=== PATIENT | female | born 1965 | race Caucasian/White ===

== ENCOUNTER 2018-12-08 18:57 | Emergency (ER) | payer OTHER, SELFPAY ==
[2018-12-08 19:24] VITALS: BP 151/93; PULSE 66; RESP 15; TEMP 36.8; O2SAT 96; BMI 38.7
== END 2018-12-08 21:20 | disposition left against medical advice (07) ==
PROVIDERS: Emergency Provider Emergency Medicine; PCP Registered Nurse Diabetes Educator
DX: Z53.21 Procedure and treatment not carried out due to patient leaving prior to being seen by health care provider (principal)
CPT/HCPCS: 99282

== ENCOUNTER 2019-10-24 12:49 | Emergency (ER) | payer OTHER, SELFPAY ==
[2019-10-24] VITALS (11 sets, daily range): BP systolic 133–171; BP diastolic 62–89; PULSE 62–77; RESP 15–25; TEMP 36.6–36.7; O2SAT 96–100
--- NOTE | 2019-10-24 12:51 | DI.RAD.S_ITS ---
PROCEDURE: XR KNEE RT 3V INDICATIONS: possible dislocation TECHNIQUE: 2 views of the knee were acquired. COMPARISON: None. FINDINGS: Bones: There is lateral dislocation of tibia at the femorotibial joint. The patella is also laterally dislocated. Small fracture fragments are likely present. Soft tissues: No joint effusion. No suspicious soft tissue calcifications. IMPRESSION: Lateral dislocation of the right knee. Dictated by: Tawnya Martinez M.D. on 10/24/2019 at 13:25 Approved by: Tawnya Martinez M.D. on 10/24/2019 at 13:35
--- NOTE | 2019-10-24 12:55 | ED_ITS ---
HPI - General Adult General Chief complaint: Extremity Injury, Lower Stated complaint: R knee deformity after fall Time Seen by Provider: 10/24/19 12:51 Source: patient and EMS Mode of arrival: EMS Limitations: no limitations History of Present Illness HPI narrative: 54-year-old female here for evaluation of a right knee injury. Patient states that she was outside with her dogs when she tripped over 1 of her dogs in slipped and fell. Has an obvious deformity to her right knee. Arrived by EMS in a Aircast. She was not given any pain medication per her request prior to arrival. Related Data Previous Rx's Medication Instructions Recorded hydrocodone-acetaminophen [[place]] 1 tab PO Q4-6H PRN #14 tab 10/24/19 Allergies Allergy/AdvReac Type Severity Reaction Status Date / Time No Known Drug Allergies Allergy Verified 12/08/18 19:28 Review of Systems Constitutional Constitutional: Denies fatigue and Denies headache(s) ENT Ears, Nose, Mouth, and Throat: Denies headache(s) Cardiovascular Cardiovascular: Denies chest pain and Denies dyspnea Respiratory Respiratory: Denies dyspnea Gastrointestinal Gastrointestinal: Denies abdominal pain Musculoskeletal Musculoskeletal: Denies numbness and Denies tingling Comments: Right knee pain and deformity Integumentary/Breasts Skin/Breast: Denies lesions and Denies rash Neurologic Neurologic: Denies headache(s), Denies numbness, Denies tingling and Denies paresthesias Comments: No sensation changes right lower extremity Endocrine Endocrine: Denies fatigue Hematologic/Lymphatic Hematologic/Lymphatic: Denies easy bleeding and Denies easy bruising Patient History Medical History Crohn's disease (Acute) Hypothyroid (Acute) Social History Smoking Status: Never smoker Smoking Status: Never smoker alcohol intake frequency: 0-2 drinks per day Substance Use Type: does not use Exam Initial Vital Signs Initial Vital Signs: Vital Signs Temperature 97.8 F 10/24/19 13:00 Pulse Rate 62 10/24/19 13:00 Respiratory Rate 21 10/24/19 13:00 Blood Pressure 144/69 H 10/24/19 13:00 Pulse Oximetry 100 10/24/19 13:00 Const General: cooperative and No comfortable (Uncomfortable) Limitations: mental status not altered HENOK Head: normal to inspection and normocephalic Resp Effort & Inspection: normal respiratory effort Cardio Pulses: dorsalis pedis present on the right Skin Lesions: no lesions Rashes: no rashes Neuro Other: Sensation intact right foot. Patient able to the move her toes and dorsiflex her ankle. Extrem Other: Obvious deformity to right knee Psych Appearance: grossly normal and well kempt Procedures Orthopedic Joint Reduction Joint #1: Time Out Performed: Yes Side: right Joint Reduction Location: knee/patella Analgesia: procedural sedation Post-reduction neuro exam: intact and no change Post-reduction vascular: intact and no change Post Reduction X-Ray Obtained: Yes Post Reduction X-Ray Results: reduced Splint Applied: Yes Patient Tolerated Procedure: Well Orthopedic Splinting/Casting Injury #1: Side: right Lower Extremity Injury Location: knee Lower Extremity Immobilizer: posterior splint Post splinting neuro exam: intact Post splinting vascular exam: intact Placed by: Provider Procedural Sedation Consent signed: No Time out performed: Yes Indication: fracture/dislocation reduction ASA Class: II Mallampati Airway Classification: Class I Preparation: ekg monitor tech applied, pulse oximeter, capnometry used and supplemental O2 applied IV Propofol dose (mg): 150 ED Sedation Level: Moderate (Concious) Complications: hypoventilation Interventions: Airway repositioned and Assist by BVM Course Orders Ordered: ED Orders 10/24/19 12:51 XR knee RT 1to2V Stat 10/24/19 13:15 Basic Metabolic Panel Stat Complete Blood Count AUTO DIFF Stat 10/24/19 13:34 XR knee RT 1to2V Stat 10/24/19 13:44 CT angio LE RT Stat Discontinued Medications Hydromorphone HCl (Dilaudid) 1 mg IV NOW ONE Stop: 10/24/19 12:55 Last Admin: 10/24/19 13:02 Dose: 1 mg Documented by: MEISENB Sodium Chloride (Normal Saline 0.9%) 1,000 mls @ 150 mls/hr IV CONT VIOLA Last Infusion: 10/24/19 17:13 Dose: 0 mls/hr Documented by: Admin: 10/24/19 13:02 Dose: 150 mls/hr Documented by: MEISENB Propofol (Diprivan) 100 mg IV NOW ONE Stop: 10/24/19 13:10 Last Admin: 10/24/19 13:37 Dose: 100 mg Documented by: MEISENB Vital Signs Vital signs: Vital Signs - 8 hr 10/24/19 13:00 10/24/19 13:14 10/24/19 13:21 Temperature 97.8 F Pulse Rate 62 65 Pulse Rate [Right Dorsalis Pedis] 63 Respiratory Rate 21 18 Blood Pressure 144/69 H Blood Pressure [Left Arm] 135/62 Blood Pressure [Right Ankle] Blood Pressure [Right Arm] Pulse Oximetry 100 100 10/24/19 13:23 10/24/19 13:30 10/24/19 13:42 Temperature Pulse Rate 66 66 64 Pulse Rate [Right Dorsalis Pedis] Respiratory Rate 18 25 H 18 Blood Pressure Blood Pressure [Left Arm] 153/71 H 151/66 H 171/79 H Blood Pressure [Right Ankle] Blood Pressure [Right Arm] Pulse Oximetry 100 100 100 10/24/19 13:44 10/24/19 14:00 10/24/19 15:06 Temperature Pulse Rate 62 75 77 Pulse Rate [Right Dorsalis Pedis] Respiratory Rate 19 16 17 Blood Pressure Blood Pressure [Left Arm] 152/82 H 141/89 H 151/76 H Blood Pressure [Right Ankle] Blood Pressure [Right Arm] Pulse Oximetry 100 99 96 10/24/19 17:07 Temperature Pulse Rate Pulse Rate [Right Dorsalis Pedis] Respiratory Rate Blood Pressure Blood Pressure [Left Arm] 133/63 Blood Pressure [Right Ankle] 159/74 H Blood Pressure [Right Arm] 133/63 Pulse Oximetry Medical Decision Making Lab Data Lab results reviewed: Yes I reviewed the patient's lab results. Result diagrams: 10/24/19 13:15 10/24/19 13:15 Labs: Lab Results 10/24/19 10/24/19 Range/Units 13:15 13:15 WBC 9.7 (4.5-11.0) X10^3/uL RBC 4.63 (4.0-5.2) X10^6/uL Hgb 14.4 (12.0-16.0) g/dL Hct 42.3 (36-46) % MCV 91.4 (80-100) fL MCH 31.2 (26-34) PG MCHC 34.1 (30-36) % RDW 12.8 (11.6-14.8) % Plt Count 308 (150-400) X10^3/uL Neut % (Auto) 60.7 (50-75) % Lymph % (Auto) 30.8 (25-40) % [place] % (Auto) 7.0 (3-14) % Eos % (Auto) 0.9 L (2-4) % Baso % (Auto) 0.6 (0-2) % Neut # (Auto) 5900 (2047-5742) /uL Lymph # (Auto) 3000 (1452-9627) /uL [place] # (Auto) 700 (0-900) /uL Eos # (Auto) 100 (0-450) /uL Baso # (Auto) 100 (0-100) /uL Sodium 139 (137-145) mmol/L Potassium 3.8 (3.4-5.1) mmol/L Chloride 108 H (98-107) mmol/L Carbon Dioxide 22 (22-32) mmol/L BUN 16 (7-17) mg/dL Creatinine 0.78 (0.52-1.04) mg/dL Estimated GFR > 60.0 (>60) mL/min BUN/Creatinine Ratio 20.5 (6-22) Glucose 151 H (70-100) mg/dL Calcium 9.7 (8.4-10.2) mg/dL Point of Care Testing Test Results Negative Point of care testing: Point of Care Testing Test Results Negative Imaging Data Extremity x-ray #1: Radiologist's Impression: [place] [address] XRay Report Signed Patient: Fabi EduardoMR#: [id number] : 1965Acct:[id number] Age/Sex: 54 / FDate of Service: 10/24/19 Loc: ED Accession Number: [id number] Procedure: XR knee RT 1to2V Ordering Provider: Ralph Mathur D.O. PROCEDURE: XR KNEE RT 3V INDICATIONS: possible dislocation TECHNIQUE: 2 views of the knee were acquired. COMPARISON: None. FINDINGS: Bones: There is lateral dislocation of tibia at the femorotibial joint. The patella is also laterally dislocated. Small fracture fragments are likely present. Soft tissues: No joint effusion. No suspicious soft tissue calcifications. IMPRESSION: Lateral dislocation of the right knee. Dictated by: Tawnya Martinez M.D. on 10/24/2019 at 13:25 Approved by: Tawnya Martinez M.D. on 10/24/2019 at 13:35 Extremity x-ray #2: Radiologist's Impression: [address] [address] XRay Report Signed Patient: Bhaskar Eduardo#: [id number] : 1965Acct:[id number] Age/Sex: 54 / FDate of Service: 10/24/19 Loc: ED Accession Number: [id number] Procedure: XR knee RT 1to2V Ordering Provider: Ralph Mathur D.O. PROCEDURE: XR KNEE RT 1TO2V INDICATIONS: POST REDUCTION TECHNIQUE: 3 views of the knee were acquired. COMPARISON: [facility], , XR KNEE RT 3V, 10/24/2019, 12:56. FINDINGS: Bones: Right knee dislocation is reduced. The femorotibial joint and patellofemoral joint are in anatomic alignment. Tibial eminence fracture with small fracture fragments within the knees joint. Soft tissues: Small joint effusion. No suspicious soft tissue calcifications. IMPRESSION: 1. Complete reduction of right knee dislocation. 2. Multiple small fracture fragments from the tibial eminence. 3. Small knee joint effusion. Dictated by: Tawnya Martinez M.D. on 10/24/2019 at 14:23 Approved by: Tawnya Martinez M.D. on 10/24/2019 at 14:29 CTA leg: Radiologist's Impression: [address] [address] [address] Scan Report Signed Patient: Bhaskar Eduardo#: [id number] : 1965Acct:[id number] Age/Sex: 54 / FDate of Service: 10/24/19 Loc: ED Accession Number: [id number] Procedure: CT angio LE RT Ordering Provider: Ralph Mathur D.O. PROCEDURE: CT ANGIO LE RT INDICATIONS: Knee dislocation right knee TECHNIQUE: After the administration of intravenous contrast, 2.5 mm sections acquired from T12 to the feet, with optional delayed image acquisition from the knees to the feet. 3-dimensional maximum intensity projection (MIP) coronal and sagittal reformats, and/or 3-dimensional volume rendering reformatting was then performed. For radiation dose reduction, the following was used: automated exposure control. COMPARISON: [facility], CR, XR KNEE RT 1TO2V, 10/24/2019, 13:39. [facility], CR, XR KNEE RT 3V, 10/24/2019, 12:56. FINDINGS: Image quality: Excellent. Extravascular tissues: . Non opacified bowel loops demonstrate normal wall thickness and enhancement. Colonic diverticula are present. No free fluid or air. No retroperitoneal or mesenteric adenopathy. No ventral hernias. Bladder wall thickness is normal. No inguinal hernias or adenopathy. No vertebral body compression fractures. The right knee is in anatomic alignment after previous dislocation. Small areas of bone fragments are identified within the central portion joint space. Right lower extremity: Common, internal and external iliac arteries, as well as common, superficial and profunda femoral arteries demonstrate no areas of hemodynamically significant stenosis, vascular occlusion or aneurysmal dilation. Popliteal artery is intact. Three-vessel runoff is present below the knee with anterior and posterior tibial as well as peroneal arteries extending to the foot. Left lower extremity: Common, internal and external iliac arteries, as well as common, superficial and profunda femoral arteries demonstrate no areas of hemodynamically significant stenosis, vascular occlusion or aneurysmal dilation. Popliteal artery is intact. Three-vessel runoff is present below the knee with anterior and posterior tibial as well as peroneal arteries extending to the foot. IMPRESSION: 1. No vascular injury. 2. Small bony fragments within the midportion of the right knee joint space as above. Overall appearance is most chest with small avulsion fractures of the lateral tibial spine. Dictated by: Aisha Rodríguez M.D. on 10/24/2019 at 14:22 Approved by: Aisha Rodríguez M.D. on 10/24/2019 at 14:32 MDM Narrative Medical decision making narrative: Patient with obvious deformity to right knee. X-ray confirms lateral knee dislocation. Patient was neurovascularly intact upon arrival. Strong DP pulse, brisk cap refill, good wiggle her toes and dorsiflex her foot. Sensation also intact her distal right lower extremity. Patient was sedated as described above. Knee dislocation reduced. Exam under anesthesia shows what appears to be has significant MCL and ACL and PCL injury. She was placed in a posterior splint. Reduction films obtained. CTA shows no v ascular abnormalities. I did discuss the case with Dr. Lawrence with Orthopedic surgery who recommended consultation with Orthopedic providers at [facility]. I did discuss the case with Dr. Figueroa with orthopedic surgery who stated that he recommended the patient be observed for compartment syndrome and also obtaining GUERDA's every 6 hours until morning. He stated that if she was not developing concerns for compartment syndrome that she could be discharged in the splint. He did state that she could be partial weight- bearing/weightbearing as tolerated. Transfer center at [facility] stated that they would place a consult to the [facility] for follow-up. I went back and discussed this with the patient and her . They expressed understanding. Initial GUERDA was 1.1. Will repeat again at 2300 and again at 0500. During this time her compartments were soft. She had minimal pain. Dorsalis pedis and posterior tibial pulse on the right strong. Had brisk cap refill. Will continue to observe overnight with the above plan. Care turned over to Dr. Daugherty to continue with anticipation of discharge in the morning. Discharge Plan Departure Patient Disposition: Home Clinical Impression: Dislocation of knee joint Qualifiers: Encounter type: initial encounter Laterality: right Qualified Code(s): S83.104A - Unspecified dislocation of right knee, initial encounter Instructions: How to Use Crutches, How to Use a Knee Immobilizer Activity Restrictions/Additional Instructions: Recommend that on Monday10/25/19 you contact your primary provider to let them know of your injury. Also recommend that you contact the Orthopedic surgery group on [facility] regarding your injury. Take the copy of the radiologic studies that you had done to them. I did discuss the case with the Orthopedic surgery group at [facility]. A consult will be placed to the [facility] at [facility]. You should be receiving a call from them. Their phone number is [phone]. Take the pain medication as needed. Use the splint and knee immobilizer like we discussed. You can put some pressure on your foot as tolerated. Prescriptions: New hydrocodone-acetaminophen [[place]] 5-325 mg tablet 1 tab PO Q4-6H PRN (Reason: pain) Qty: 14 RF: 0 Referrals: Angelo Trinh ARNP [Primary Care Provider] -
[2019-10-24] MEDS: SODIUM CHLORIDE 0.9% 1,000 ML 150 ML IV (13:02)
[2019-10-24] MEDS: HYDROMORPHONE 1 MG INJ IV (13:02)
--- NOTE | 2019-10-24 13:15 | PC.NURSE ---
Addendum entered by Tammy Lizarraga R.N. 10/24/19 18:04: she was knocked down by 2 dogs. Original Note: pt states, 2 dogs ran her over and her knees gave out, occured at 1130.
[2019-10-24 13:24] LABS: Add Manual Diff / Slide Review NO; Basophils Absolute Auto 100 /uL (0-100); Basophils Percent Auto 0.6 % (0-2); Eosinophils Absolute Auto 100 /uL (0-450); Eosinophils Percent Auto 0.9 % (2-4); Hematocrit 42.3 % (36-46); Hemoglobin 14.4 g/dL (12.0-16.0); Lymphocytes Absolute Auto 3000 /uL (1100-4500); Lymphocytes Percent Auto 30.8 % (25-40); Mean Corpuscular HGB Conc 34.1 % (30-36); Mean Corpuscular Hemoglobin 31.2 PG (26-34); Mean Corpuscular Volume 91.4 fL (80-100); Monocytes Absolute Auto 700 /uL (0-900); Neutrophils Absolute Auto 5900 /uL (1500-7000); Neutrophils Percent Auto 60.7 % (50-75); Platelet Count 308 X10^3/uL (150-400); Red Blood Cell Count 4.63 X10^6/uL (4.0-5.2); Red Cell Distribution Width 12.8 % (11.6-14.8); White Blood Cell Count 9.7 X10^3/uL (4.5-11.0)
--- NOTE | 2019-10-24 13:24 | PC.NURSE ---
initiated with reduction by dr rodriges.. additional 20mg propofol
--- NOTE | 2019-10-24 13:26 | PC.NURSE ---
additional 30 mg propofol in progress with reduction.
--- NOTE | 2019-10-24 13:28 | PC.NURSE ---
close reduction, sat 84 %, placed on NRB , pt 1329 waking up, assist with respiration 97 % with assist respiration, NRB
--- NOTE | 2019-10-24 13:30 | PC.NURSE ---
right knee splint application by 3 er staff, distal pulse +
[2019-10-24 13:34] LABS: BUN Creatinine Ratio 20.5 (6-22); Blood Urea Nitrogen 16 mg/dL (7-17); Calcium 9.7 mg/dL (8.4-10.2); Carbon Dioxide 22 mmol/L (22-32); Chloride 108 mmol/L (98-107); Estimated Glomerular Filt Rate > 60.0 mL/min (>60); Glucose 151 mg/dL (70-100); HEMOLYSIS < 15 (0-50); Potassium 3.8 mmol/L (3.4-5.1); Sodium 139 mmol/L (137-145)
--- NOTE | 2019-10-24 13:34 | DI.RAD.S_ITS ---
PROCEDURE: XR KNEE RT 1TO2V INDICATIONS: POST REDUCTION TECHNIQUE: 3 views of the knee were acquired. COMPARISON: [facility], , XR KNEE RT 3V, 10/24/2019, 12:56. FINDINGS: Bones: Right knee dislocation is reduced. The femorotibial joint and patellofemoral joint are in anatomic alignment. Tibial eminence fracture with small fracture fragments within the knees joint. Soft tissues: Small joint effusion. No suspicious soft tissue calcifications. IMPRESSION: 1. Complete reduction of right knee dislocation. 2. Multiple small fracture fragments from the tibial eminence. 3. Small knee joint effusion. Dictated by: Tawnya Martinez M.D. on 10/24/2019 at 14:23 Approved by: Tawnya Martinez M.D. on 10/24/2019 at 14:29
[2019-10-24] MEDS: propofoL 200 MG/20 ML VIAL 100 MG IV (13:37)
--- NOTE | 2019-10-24 13:42 | PC.NURSE ---
awake amd alert
--- NOTE | 2019-10-24 13:44 | DI.CT.S_ITS ---
PROCEDURE: CT ANGIO LE RT INDICATIONS: Knee dislocation right knee TECHNIQUE: After the administration of intravenous contrast, 2.5 mm sections acquired from T12 to the feet, with optional delayed image acquisition from the knees to the feet. 3-dimensional maximum intensity projection (MIP) coronal and sagittal reformats, and/or 3-dimensional volume rendering reformatting was then performed. For radiation dose reduction, the following was used: automated exposure control. COMPARISON: [facility], CR, XR KNEE RT 1TO2V, 10/24/2019, 13:39. [facility], CR, XR KNEE RT 3V, 10/24/2019, 12:56. FINDINGS: Image quality: Excellent. Extravascular tissues: . Non opacified bowel loops demonstrate normal wall thickness and enhancement. Colonic diverticula are present. No free fluid or air. No retroperitoneal or mesenteric adenopathy. No ventral hernias. Bladder wall thickness is normal. No inguinal hernias or adenopathy. No vertebral body compression fractures. The right knee is in anatomic alignment after previous dislocation. Small areas of bone fragments are identified within the central portion joint space. Right lower extremity: Common, internal and external iliac arteries, as well as common, superficial and profunda femoral arteries demonstrate no areas of hemodynamically significant stenosis, vascular occlusion or aneurysmal dilation. Popliteal artery is intact. Three-vessel runoff is present below the knee with anterior and posterior tibial as well as peroneal arteries extending to the foot. Left lower extremity: Common, internal and external iliac arteries, as well as common, superficial and profunda femoral arteries demonstrate no areas of hemodynamically significant stenosis, vascular occlusion or aneurysmal dilation. Popliteal artery is intact. Three-vessel runoff is present below the knee with anterior and posterior tibial as well as peroneal arteries extending to the foot. IMPRESSION: 1. No vascular injury. 2. Small bony fragments within the midportion of the right knee joint space as above. Overall appearance is most chest with small avulsion fractures of the lateral tibial spine. Dictated by: Aisha Rodríguez M.D. on 10/24/2019 at 14:22 Approved by: Aisha Rodríguez M.D. on 10/24/2019 at 14:32
--- NOTE | 2019-10-24 14:02 | PC.NURSE ---
at 1331 pt desat 87%, placed on NRB? then with assist in ventilation, then 97%
--- NOTE | 2019-10-24 17:05 | PC.NURSE ---
right lower leg splint reapplied, +elevation, +ice pack provided. pt moved to regular hospital bed. plan of care.. GUERDA at 2300 and repeat at 0500.
[2019-10-25 05:06] VITALS: BP 134/73; BP 161/75; PULSE 75; RESP 14; O2SAT 95
== END 2019-10-25 05:15 | disposition home or self-care (01) ==
PROVIDERS: Emergency Medicine; Emergency Provider Emergency Medicine; PCP Registered Nurse Diabetes Educator
DX: S83.104A Unspecified dislocation of right knee, initial encounter (principal); W01.0XXA Fall on same level from slipping, tripping and stumbling without subsequent striking against object, initial encounter
CPT/HCPCS: 27560; 36415; 73560; 73706; 80048; 85025; 94770; 96361; 96374; 99152; 99285; J1170; J2704; Q9967

== ENCOUNTER 2020-02-26 08:27 | Day surgery (SDC) | payer OTHER, SELFPAY ==
--- NOTE | 2020-02-26 | PATH_ITS ---
[facility] Accession Number: [id number] . 01 Material submitted: . PART A: cecum - CECUM (RANDOM) PART B: colon - ASCENDING COLON (RANDOM) PART C: colon - TRANSVERSE COLON (RANDOM) PART D: colon - LEFT COLON (RANDOM) PART E: rectum - RECTUM (RANDOM) PART F: ileum - TERMINAL ILEUM (RANDOM) PART G: colon - ASCENDING COLON POLYP . 02 Diagnosis: A-E: Cecum, Ascending Colon, Transverse Colon, Left Colon, Rectum, Biopsies: Colonic mucosa with no significant diagnostic abnormality. Negative for active inflammation, granulomas, dysplasia, and malignancy. . F. Terminal Ileum, Random Biopsies: Small bowel mucosa with no diagnostic abnormality. Negative for active inflammation, dysplasia, and malignancy. . G. Ascending Colon, Polyp, Biopsy: Inflammatory polyp in one of two fragments. Colonic mucosa with a benign lymphoid aggregate in one fragment. [facility] 02/28/2020 1017 Local . 02 Electronically signed: . Micki Whiteside MD, Pathologist NPI- [id number] . 01 Gross description: . Part A: CECUM (RANDOM): Received in formalin are 4 fragment(s) of pascual, soft tissue measuring 0.4 x 0.2 x 0.1 cm to 0.1 x 0.1 x 0.1 cm submitted entirely in 1 cassette(s) Part B: ASCENDING COLON (RANDOM): Received in formalin are 4 fragment(s) of pascual, soft tissue measuring 0.5 x 0.2 x 0.1 cm to 0.3 x 0.3 x 0.2 cm submitted entirely in 1 cassette(s) Part C: TRANSVERSE COLON (RANDOM): Received in formalin are 4 fragment(s) of pascual, soft tissue measuring 0.5 x 0.3 x 0.1 cm to 0.2 x 0.2 x 0.1 cm submitted entirely in 1 cassette(s) Part D: LEFT COLON (RANDOM): Received in formalin are 3 fragment(s) of pascual, soft tissue measuring 0.3 x 0.3 x 0.1 cm to 0.2 x 0.2 x 0.2 cm submitted entirely in 1 cassette(s) Part E: RECTUM (RANDOM): Received in formalin are 3 fragment(s) of pascual, soft tissue measuring 0.6 x 0.2 x 0.1 cm to 0.3 x 0.2 x 0.1 cm submitted entirely in 1 cassette(s) Part F: TERMINAL ILEUM (RANDOM): Received in formalin are 4 fragment(s) of pascual, soft tissue measuring 0.4 x 0.3 x 0.1 cm to 0.1 x 0.1 x 0.1 cm submitted entirely in 1 cassette(s) Part G: ASCENDING COLON POLYP: Received in formalin are 2 fragment(s) of pascual, soft tissue measuring 0.4 x 0.4 x 0.2 cm to 0.3 x 0.2 x 0.1 cm submitted entirely in 1 cassette(s) /QBJ 02/27/2020 0809 Local . 02 Pathologist provided ICD-10: K63.5, K50.00 . 02 CPT . 264136, 881587, 371410, 394331, 066398, 033230, [id number] Performed at: 01 [facility] [address] [place] [address], [place], [place] [id number] MD Pablo May MD Phone: [phone] Performed at: [address] [facility] [address] [place], [place] [id number] MD Micki Whiteside MD Phone: [phone]
[2020-02-26 09:05] VITALS: BP 146/85; PULSE 71; RESP 20; TEMP 36.4; O2SAT 98; BMI 37.1
--- NOTE | 2020-02-26 09:09 | PM.HP.1 ---
History of Present Illness History of Present Illness Date Patient Seen: 02/26/20 Chief complaint: COLONOSCOPY W/POSS BX Narrative: 54-year-old female with a history of small-bowel Crohn's disease diagnosis 15 years ago with an our office in September 2019 and is now here for colon cancer screening Patient History Medical History (Updated 11/09/19 @ 00:01 by ) Crohn's disease (Acute) Hypothyroid (Acute) Family & Social History Tobacco & Substance use: Smoking Status Never smoker alcohol intake frequency 0-2 drinks per day Substance Use Type does not use Meds Home Medications and Allergies Home Medications Medication Instructions Recorded Confirmed Type levothyroxine [Synthroid] 137 mcg PO DAILY 02/26/20 02/26/20 History venlafaxine 75 mg PO DAILY 02/26/20 02/26/20 History Allergies Allergy/AdvReac Type Severity Reaction Status Date / Time No Known Drug Allergies Allergy Verified 02/26/20 08:49 Exam Narrative Exam Narrative: General: Patient is obese, not in apparent distress Cardiovascular: Regular rate and rhythm, no murmurs, rubs, or gallops; no evidence of edema; no palpable abdominal aortic aneurysm Gastrointestinal: Normoactive bowel sounds, soft, nontender, nondistended, no rebound tenderness, no hepatosplenomegaly, no evidence of hernia Assessment & Plan Assessment & Plan narrative: 54-year-old female with a longstanding history of Crohn's disease of the colon 15 with here for colon cancer screening and disease activity assessment Regarding the procedure(s), the risks and potential complications, benefits, and alternatives (including not doing the procedure) were discussed with the patient. The risks include but are not limited to bleeding, splenic injury, infection, perforation which may require surgical intervention, missed lesions, and adverse reactions to sedative medicines. After a question and answer period, the patient agreed to proceed with the procedure(s) and gives informed consent.
[2020-02-26] MEDS: SODIUM CHLORIDE 0.9% 1,000 ML 70 ML IV (09:13)
--- NOTE | 2020-02-26 10:07 | P.OP.ENDO_ITS ---
Operative Date/Time/Diagnoses Date of procedure: 02/26/20 Procedure Notes Procedure in detail: Surgeon: Barrie Ruiz MD Procedure: Colonoscopy with biopsy and polypectomy Preoperative diagnosis: Crohn's disease small intestine; colon cancer screening Postoperative diagnosis: No evidence of active Crohn's disease; pseudopolyps in the ascending and proximal transverse colon; ascending colon polyp status post polypectomy; Gr 1 internal hemorrhoids Medications: Conscious sedation using 6 mg IV of Midazolam and 100 mcg IV of Fentanyl Preanesthesia Assessment An H and P was performed/updated and the Px?s ASA class is 2. The procedure was discussed in detail with the patient. The potential risks and complications including infection, bleeding, missed lesions, perforation, need for surgery in case of perforation, prolonged hospital stay, and were explained. A brief question and answer period was allotted and once all questions were answered, informed consent was obtained. The patient was brought back to the procedure room and placed on standard monitoring. The patient?s vital signs were monitored continuously throughout the entire procedure. Prior to starting, a timeout was performed to confirm the patient?s identity, allergies, medications, and procedure. Procedure in detail The patient was placed in left lateral decubitus position and once adequate sedation was obtained a FREDERICK was performed. The digital rectal examination did not reveal any palpable lesions. The tip of the colonoscope was placed in the anal canal and advanced without difficulty all the way to the cecum which was identified by the appendiceal orifice and the ileocecal valve. The terminal ileum was intubated to a distance of 10 cm and the mucosa appeared normal. Biopsies were taken with minimal bleeding. The colonoscope was then brought back to the cecum and careful examination of all dahl of the colon was performed with irrigation of any residual stool. The cecal mucosa, appeared erythematous with no evidence of active inflammation biopsies were performed with minimal bleeding. The ascending colon and proximal transverse colon had evidence of small pseudopolyps. One 5 mm polyp in the ascending colon was removed by means of cold snare with minimal bleeding. Resection and retrieval was complete. Biopsies were taken from the ascending colon and transverse colon. The transverse colon, descending colon, sigmoid colon, and rectum appeared normal. Biopsies were taken from these areas for further evaluation Retroflexion was performed in the rectum which revealed grade 1 internal hemorrhoids. The patient tolerated the procedure well and will be brought back to the recovery area to be discharged once criteria are met. The prep was judged to be good and adequate to identify polyps less than 5 mm. The withdrawal time was 14 minutes. The total physician intraservice time was 25th. Complications There were no complications and estimated blood loss was minimal. Recommendations: Resume previous diet Continue outPx medications Follow up pathology results Repeat colonoscopy in 2 years unless otherwise indicated by pathology finding Call our office ([facility]) to schedule follow-up with Dr Jeong An emergency contact number was given to the patient for any complications related to the procedure
[2020-02-26] MEDS: MIDAZOLAM 5 MG/5 ML VIAL IV (10:15)
[2020-02-26] MEDS: fentaNYL 250 MCG/5 ML INJ IV (10:15)
[2020-02-26 10:35] VITALS: BP 164/93; PULSE 66; RESP 16; TEMP 36.1; O2SAT 96
[2020-02-26 10:39] VITALS: BP 152/90; PULSE 75; RESP 18; TEMP 35.5; O2SAT 94
[2020-02-26 10:45] VITALS: BP 139/85; PULSE 81; RESP 15; TEMP 36.7; O2SAT 95
[2020-02-26 10:50] VITALS: BP 135/84; PULSE 68; RESP 16; TEMP 36.4; O2SAT 94
[2020-02-26 10:58] VITALS: BP 138/92; PULSE 66; RESP 16; TEMP 36.9; O2SAT 99
== END 2020-02-26 11:16 | disposition home or self-care (01) ==
PROVIDERS: PCP Registered Nurse Diabetes Educator; Referring Provider Internal Medicine Gastroenterology; Visit Provider Internal Medicine Gastroenterology
PROC: 0DJD8ZZ Inspection of Lower Intestinal Tract, Via Natural or Artificial Opening Endoscopic (ICD-10-PCS; CPT 45378; principal; 2020-02-26 10:00)
DX: Z12.11 Encounter for screening for malignant neoplasm of colon (principal); E03.9 Hypothyroidism, unspecified; K64.0 First degree hemorrhoids; K63.5 Polyp of colon
CPT/HCPCS: 45385; 45380; J2250; J3010

== ENCOUNTER → 2020-03-24 16:22 | Outpatient (CLI) | payer OTHER, SELFPAY ==
--- NOTE | 2020-03-24 16:24 | DI.MG.S_ITS ---
BILATERAL DIGITAL SCREENING MAMMOGRAM 3D/2D WITH CAD: 03/24/2020 CLINICAL: Routine screening. Comparison is made to exams dated: 08/14/2018 mammogram, 08/09/2016 mammogram, and 07/29/2015 mammogram - outside location. There are scattered fibroglandular elements in both breasts. Current study was also evaluated with a Computer Aided Detection (CAD) system. No significant masses, calcifications, or other findings are seen in either breast. There has been no significant interval change. IMPRESSION: NEGATIVE There is no mammographic evidence of malignancy. A 1 year screening mammogram is recommended. This exam was interpreted at Station ID: [id number]. NOTE: For mammograms, a report in lay terms will be sent to the patient. Approximately 15% of breast malignancies will not be visualized mammographically. In the management of a palpable breast mass, a negative mammogram must not discourage biopsy of a clinically suspicious lesion. Electronically Signed By: Jimbo hoyt/suri:03/24/2020 16:56:46 letter sent: Normal Exam ACR BI-RADS Category 1: Negative 3341F
== END ==
PROVIDERS: PCP Registered Nurse Diabetes Educator; Referring Provider Registered Nurse Diabetes Educator; Visit Provider Registered Nurse Diabetes Educator
DX: Z12.31 Encounter for screening mammogram for malignant neoplasm of breast (principal)
CPT/HCPCS: 77063; 77067

== ENCOUNTER → 2021-04-20 10:14 | Outpatient (CLI) | payer OTHER, SELFPAY ==
--- NOTE | 2021-04-20 | DI.MG.S_ITS ---
BILATERAL DIGITAL SCREENING MAMMOGRAM 3D/2D WITH CAD: 04/20/2021 CLINICAL: Routine screening. Comparison is made to exams dated: 03/24/2020 mammogram - [facility], 08/14/2018 mammogram, and 08/09/2016 mammogram - outside location. There are scattered fibroglandular elements in both breasts. Current study was also evaluated with a Computer Aided Detection (CAD) system. No significant masses, calcifications, or other findings are seen in either breast. There has been no significant interval change. IMPRESSION: NEGATIVE There is no mammographic evidence of malignancy. A 1 year screening mammogram is recommended. This exam was interpreted at Station ID: [id number]. NOTE: For mammograms, a report in lay terms will be sent to the patient. Approximately 15% of breast malignancies will not be visualized mammographically. In the management of a palpable breast mass, a negative mammogram must not discourage biopsy of a clinically suspicious lesion. Electronically Signed By: Norris Tafoya M.D., jr/suri:04/20/2021 10:37:02 letter sent: Normal Exam ACR BI-RADS Category 1: Negative 3341F
== END ==
PROVIDERS: PCP Student in an Organized Health Care Education/Training Program; Referring Provider Student in an Organized Health Care Education/Training Program; Visit Provider Student in an Organized Health Care Education/Training Program
DX: Z12.31 Encounter for screening mammogram for malignant neoplasm of breast (principal)
CPT/HCPCS: 77063; 77067

== ENCOUNTER 2022-02-24 21:09 | Emergency (ER) | payer OTHER, SELFPAY ==
[2022-02-24 21:41] VITALS: BP 146/80; PULSE 89; RESP 20; TEMP 37.4; O2SAT 97; BMI 35.5
--- NOTE | 2022-02-25 00:30 | PC.NURSE ---
pt was stung by a wasp Wed, right arm noted swollen, red and tight with itching no relief with benadryl
[2022-02-25] MEDS: FAMOTIDINE 20 MG/2 ML VIAL IV (01:00)
[2022-02-25] MEDS: methylPREDNISolone 125 MG/2 ML VIAL IV (01:00)
[2022-02-25] MEDS: diphenhydrAMINE 50 MG/ML VIAL 25 MG IV (01:00)
--- NOTE | 2022-02-25 01:09 | ED_ITS ---
HPI - Allergic Reaction General Chief complaint: Allergic Reaction Stated complaint: sting or bite reaction, rt arm. swollen, hot Time Seen by Provider: 02/25/22 00:25 Source: patient Mode of arrival: Ambulatory History of Present Illness HPI narrative: 56-year-old female nonsmoker with noncontributory medical history presents with a chief complaint of redness and swelling on her right forearm after being stung by a bee yesterday. She states that she has had rather impressive reactions in the past to bees but never any anaphylaxis. She denies any face, tongue, lip or throat swelling. She denies any chest pain, shortness of breath or difficulty breathing. She denies nausea, vomiting or diarrhea. Related Data Home Medications Medication Instructions Recorded Confirmed levothyroxine 137 mcg tablet 137 mcg PO DAILY 02/26/20 02/26/20 (Synthroid) venlafaxine 75 mg capsule,extended 75 mg PO DAILY 02/26/20 02/26/20 release 24 hr Previous Rx's Medication Instructions Recorded prednisone 20 mg tablet 20 mg PO DAILY #5 tabs 02/25/22 Allergies Allergy/AdvReac Type Severity Reaction Status Date / Time No Known Drug Allergies Allergy Verified 02/26/20 08:49 Review of Systems Review of Systems Narrative: GENERAL: Denies chills, fatigue, malaise, fever, sweats. HEENT: Denies sinus pain, ear pain, sore throat, difficulty swallowing, dizziness. RESPIRATORY: Denies dyspnea, cough, wheezing, hemoptysis, sputum. CARDIOVASCULAR: Denies chest pain, palpitations, orthopnea, edema, GASTROINTESTINAL: Denies nausea, vomiting, abdominal pain, diarrhea, constipation, melena. : Denies dysuria, frequency, incontinence, hematuria, urinary retention. MUSCULOSKELETAL: denies weakness, joint pain, or bony pain SKIN: See HPI NEUROLOGIC: Denies weakness, headache, numbness, change in speech, confusion, seizures, incoordination. PSYCHIATRIC: No concerning psychosocial issues. 12 point review of systems is negative except for those stated above Patient History Medical History Crohn's disease Hypothyroid Social History household members: spouse Smoking Status: Never smoker Smoking Status: Never smoker alcohol intake frequency: 0-2 drinks per day Substance Use Type: does not use Exam Narrative Exam Narrative: GENERAL: [56] year old patient appears stated age. Well-developed patient, in mild distress. HEAD: Atraumatic. Normocephalic. EYES: Pupils equal round and reactive. Extraocular motions intact. No scleral icterus. No injection or drainage. ENT: Nose without bleeding, purulent drainage. Throat without erythema, tonsillar hypertrophy or exudate. Airway patent. NECK: Trachea midline. Non tender CARDIOVASCULAR: Regular rate and rhythm without murmurs, gallops, or rubs. RESPIRATORY: Clear to auscultation. Breath sounds equal bilaterally. No wheezes, rales, or rhonchi. GASTROINTESTINAL: Abdomen soft, non-tender, nondistended. EXTREMITIES: No edema or joint tenderness. BACK: Nontender without deformity or crepitance. No flank tenderness. NEURO: AOx3. SKIN: Redness and warmth on right forearm Initial Vital Signs Initial Vital Signs: Vital Signs Temperature 99.3 F 02/24/22 21:41 Pulse Rate 89 02/24/22 21:41 Respiratory Rate 20 02/24/22 21:41 Blood Pressure 146/80 H 02/24/22 21:41 Pulse Oximetry 97 02/24/22 21:41 Oxygen Delivery Method 02/24/22 21:41 Course Course Course Narrative: Significant improvement after above-stated therapies Orders Ordered: Discontinued Medications Diphenhydramine HCl (Diphenhydramine 50 Mg/Ml Vial) 25 mg IV NOW ONE Stop: 02/25/22 00:26 Last Admin: 02/25/22 01:00 Dose: 25 mg Documented By: ASHLEY Famotidine (Famotidine 20 Mg/2 Ml Vial) 20 mg IV NOW VIOLA Last Admin: 02/25/22 01:00 Dose: 20 mg Documented By: ASHLEY Methylprednisolone (Methylprednisolone 125 Mg/2 Ml Vial) 125 mg IV NOW ONE Stop: 02/25/22 00:26 Last Admin: 02/25/22 01:00 Dose: 125 mg Documented By: ASHLEY Vital Signs Vital signs: Vital Signs - 8 hr 02/24/22 21:41 Temperature 99.3 F Pulse Rate 89 Respiratory Rate 20 Blood Pressure 146/80 H Pulse Oximetry 97 Oxygen Delivery Method Room Air Discharge Plan Departure Patient Disposition: Home Clinical Impression: Allergic reaction Instructions: DI for Anaphylaxis Activity Restrictions/Additional Instructions: *You have been diagnosed with [allergic reaction] *What to do: *Please continue to take your regular medications as directed. [ x] New medication prescriptions sent to your pharmacy: [DOD ] [ ] New medication written as a paper prescription [ ] No new medications given *Please consider the routine use of over the counter antihistamines over the nex t few days 1. H1 blockers: Benadryl (Diphenhydramine), Zyrtec (Cetirizine), Calli (Fexofenadine) or Claritin (Loratadine) along with, 2. H2 blockers: Famotidine or Cimetidine *If you can please avoid what triggered your reaction today *Please follow up with your primary care provider in 2-3 days, call for an appointment. Let them know you were seen in the Emergency Department and that we ask that you be seen in follow up. We will electronically transmit a record of today's note if your PCP is in our system *If you do not have a primary care provider please contact the [facility] line at [phone]. They will ask some questions about your medical history and help get you set up with a doctor in the community. *Return to Emergency Department if you should have any new, worsening or concerning symptoms, such as swelling of tongue, throat, trouble breathing, or other concerning symptoms Prescriptions: New prednisone 20 mg tablet 20 mg PO DAILY Qty: 5 0RF Rx Instructions: administer with food or milk No Action levothyroxine [Synthroid] 137 mcg tablet 137 mcg PO DAILY venlafaxine 75 mg capsule,extended release 24hr 75 mg PO DAILY Referrals: Candi Bentley MD [Primary Care Provider] - Visit Report Forms: Patient Portal/API
--- NOTE | 2022-02-25 01:58 | PC.NURSE ---
pt's arm noted with decreased redness and swelling and pt states it does not feel as tight
== END 2022-02-25 02:30 | disposition home or self-care (01) ==
PROVIDERS: Emergency Provider Emergency Medicine; PCP Student in an Organized Health Care Education/Training Program
DX: T63.441A Toxic effect of venom of bees, accidental (unintentional), initial encounter (principal)
CPT/HCPCS: 96374; 96375; 99283; 99284; J1200; J2930

== ENCOUNTER → 2022-04-15 11:00 | Outpatient (CLI) | payer OTHER, SELFPAY ==
[2022-04-15 12:30] LABS: COVID19 -Nasal RAPID Negative (Negative)
== END ==
PROVIDERS: PCP Student in an Organized Health Care Education/Training Program; Visit Provider Surgery
DX: Z01.812 Encounter for preprocedural laboratory examination (principal); Z20.822 Contact with and (suspected) exposure to COVID-19
CPT/HCPCS: 87635; C9803

== ENCOUNTER 2022-04-18 07:10 | Day surgery (SDC) | payer OTHER, SELFPAY ==
--- NOTE | 2022-04-18 | PATH_ITS ---
[facility] Accession Number: [id number] . 01 Material submitted: . PART A: colon - ASCENDING COLON BIOPSY PART B: colon - TRANSVERSE COLON BIOPSY PART C: colon - DESCENDING COLON BIOPSY PART D: sigmoid colon - SIGMOID COLON BIOPSY PART E: rectum - RECTAL COLON BIOPSY . 01 Clinical history: . DX COLONOSCOPY W/POSS BX CROHN'S DISEASE OF LARGE INTESTINE WITHOUT COMPLICATIONS CROHN'S DISEASE OF SMALL INTESTINE WITHOUT COMPLICATIONS . 01 Diagnosis: A-E. Ascending Colon, Transverse Colon, Descending Colon, Sigmoid Colon, Rectum, Biopsy: Colonic mucosa with no significant diagnostic abnormality. Negative for active inflammation, granulomas, dysplasia, and malignancy. . . [facility] 04/20/2022 1338 Local . 01 Electronically signed: . Micki Whiteside MD, Pathologist NPI- [id number] . 01 Gross description: . Part A: ASCENDING COLON BIOPSY: Received in formalin are 2 fragment(s) of pascual, soft tissue measuring 0.2 x 0.1 x 0.1 cm to 0.1 x 0.1 x 0.1 cm submitted entirely in 1 cassette(s) Part B: TRANSVERSE COLON BIOPSY: Received in formalin are 2 fragment(s) of pascual, soft tissue measuring 0.3 x 0.3 x 0.1 cm to 0.1 x 0.1 x 0.1 cm submitted entirely in 1 cassette(s) Part C: DESCENDING COLON BIOPSY: Received in formalin are 2 fragment(s) of pascual, soft tissue measuring 0.2 x 0.1 x 0.1 cm to 0.1 x 0.1 x 0.1 cm submitted entirely in 1 cassette(s) Part D: SIGMOID COLON BIOPSY: Received in formalin are 2 fragment(s) of pascual, soft tissue measuring 0.2 x 0.1 x 0.1 cm to 0.1 x 0.1 x 0.1 cm submitted entirely in 1 cassette(s) Part E: RECTAL COLON BIOPSY: Received in formalin is 1 fragment(s) of pascual, soft tissue measuring 0.2 x 0.1 x 0.1 cm submitted entirely in 1 cassette(s) /[facility] 04/19/2022 1311 Local . 01 Pathologist provided ICD-10: K50.10, K50.00 . 01 CPT . 435346, 852820, 297174, 779528, 122170 Performed at: 01 [facility] [address] [place] [address], [place], [place] [id number] MD Pablo May MD Phone: [phone]
[2022-04-18 07:36] VITALS: BP 144/94; PULSE 66; RESP 18; TEMP 36.2; O2SAT 98; BMI 36.3
[2022-04-18] MEDS: SODIUM CHLORIDE 0.9% 1,000 ML 100 ML IV (07:53)
--- NOTE | 2022-04-18 08:04 | PM.HP.1 ---
History of Present Illness History of Present Illness Date Patient Seen: 04/18/22 Time Patient Seen: 08:04 Chief complaint: DX COLONOSCOPY W/POSS BX Narrative: I reviewed my office note. No changes. Patient History Medical History Crohn's disease Hypothyroid Family & Social History Social History: household members spouse Tobacco & Substance use: Smoking Status Never smoker alcohol intake frequency holiday/special occasion Substance Use Type does not use Meds Home Medications and Allergies Home Medications Medication Instructions Recorded Confirmed Type levothyroxine 137 mcg tablet 100 mcg PO DAILY 02/26/20 04/18/22 History (Synthroid) venlafaxine 75 mg capsule,extended 75 mg PO DAILY 02/26/20 04/18/22 History release 24 hr mesalamine 400 mg capsule,delayed 800 mg PO TID 04/18/22 04/18/22 History release Allergies Allergy/AdvReac Type Severity Reaction Status Date / Time No Known Drug Allergies Allergy Verified 02/26/20 08:49 Review of Systems Review of Systems ROS: Yes All systems reviewed with the patient and are negative except as otherwise documented Exam Vital Signs (past 8 hours): - 04/18/22 07:36 Temperature 97.2 F L Pulse Rate 66 Respiratory Rate 18 Blood Pressure 144/94 H Pulse Oximetry 98 Oxygen Delivery Method Room Air Oxygen Delivery Method Room Air Const General: cooperative HENMT Head: normal to inspection Eyes General: appearance normal, both eyes and all related structures Neck Neck: normal visual inspection Chest Chest: normal inspection of the chest Resp Effort & Inspection: normal respiratory effort Cardio Rate: regular rate GI Inspection: normal to inspection Skin General: no rashes or lesions noted Neuro General: patient alert and patient awake Extrem General: normal to inspection and no pedal edema Psych Appearance: grossly normal Assessment & Plan Assessment & Plan narrative: 56-year-old female with Crohn's colitis. She is indicated for surveillance. Colonoscopy is planned for today. Time Spent With Patient Critical Care time: I spent a total of [] minutes of critical care time on this patient's care today; this time is exclusive of procedural time.
--- NOTE | 2022-04-18 09:13 | P.OP.COLON_ITS ---
Operative Date/Time/Diagnoses Date of procedure: 04/18/22 Time of procedure: 09:13 Pre-op diagnosis: Personal history of Crohn's colitis Post-op diagnosis: same Procedure & Clinicians Study performed: Colonoscopy with biopsies Same procedure as scheduled: Yes Indications: Personal history of Crohn's colitis Surgeon: Erick Khoury Procedure Notes SCOAP/Timeout: Done Procedure in detail: After the risks and benefits were explained, written and verbal informed consent was obtained. The patient was brought into the procedure room and placed into the left lateral decubitus position. Please see nurse master motorcycle technician notes for sedation details. Digital rectal examination was accomplished. The scope was introduced into the patient and advanced under direct visualization to the cecum as identified by the appendiceal orifice and ileocecal valve. The scope was slowly withdrawn to carefully examine the mucosa for any defects or lesions. Comprehensive imaging was accomplished throughout the rectum including the dent ate line. The colon was decompressed, the scope was then removed from the patient who tolerated the procedure well. Adult colonoscope Bowel prep fair; with copious irrigation was rendered adequate. There were only a few places were I could not see underneath pill debris such as the cecum. Scope withdrawal time: 15 minutes Sedation minutes: 34 Complications: none Impression: The patient had a fairly tortuous colon. Both the right and left were challenging navigation. Diverticulosis was encountered in the sigmoid. There were a few scattered classic pseudo polyps in the transverse. I otherwise did not appreciate any evidence of macroscopic colitis. No proctitis. Mild grade 1 hemorrhoids. The terminal ileum was interrogated and appeared to be within normal limits. Segmental biopsies were taken from the ascending transverse descending sigmoid and rectum. Endoscopic diagnosis 1. Scant noninflammatory appearing pseudopolyps transverse colon 2. Diverticulosis 3. Grade 1 hemorrhoids 4. Twisty colon Post-procedure Plan for aftercare: 1. Await histopathology. 2. Continue mesalamine 3. Consider repeat colonoscopy for surveillance 2 years. Disposition: PACU
[2022-04-18 09:14] VITALS: BP 140/87; PULSE 70; RESP 17; O2SAT 99
[2022-04-18 09:19] VITALS: BP 148/80; PULSE 66; RESP 16; O2SAT 99
[2022-04-18 09:24] VITALS: BP 140/87; PULSE 68; RESP 17; O2SAT 99
== END 2022-04-18 09:45 | disposition home or self-care (01) ==
PROVIDERS: PCP Student in an Organized Health Care Education/Training Program; Referring Provider Internal Medicine Gastroenterology; Visit Provider Internal Medicine Gastroenterology
PROC: 0DJD8ZZ Inspection of Lower Intestinal Tract, Via Natural or Artificial Opening Endoscopic (ICD-10-PCS; CPT 45378; principal; 2022-04-18 08:30)
DX: Z87.19 Personal history of other diseases of the digestive system (principal); K57.30 Diverticulosis of large intestine without perforation or abscess without bleeding; K64.0 First degree hemorrhoids
CPT/HCPCS: 45380; J2704

== ENCOUNTER 2024-05-28 07:08 | Day surgery (SDC) | payer OTHER, SELFPAY ==
--- NOTE | 2024-05-28 | PATH_ITS ---
[facility] Accession Number: [id number] No. of containers..01 Tissue . 01 Material submitted: . colon - TRANSVERSE POLYP . 01 Diagnosis: TRANSVERSE POLYP: Colonic mucosa with benign lymphoid aggregate. No neoplasm identified. [facility] 05/29/2024 1730 Local . 01 Electronically signed: . Pablo May MD, Pathologist NPI- [id number] . 01 Gross description: . TRANSVERSE POLYP: Received in formalin are 2 fragment(s) of pascual, soft tissue measuring 0.2 x 0.2 x 0.2 cm to 0.3 x 0.2 x 0.2 cm submitted entirely in 1 cassette(s) /[facility] 05/29/2024 1730 Local . 01 Pathologist provided ICD-10: K63.89 . 01 CPT . 827748 Specimen Comment: A courtesy copy of this report has been sent to [phone] Performed at: [address] [facility] [address], [place], [place] [id number] MD Pablo May MD Phone: [phone]
[2024-05-28 07:30] VITALS: BP 164/100; PULSE 81; RESP 18; TEMP 36.8; O2SAT 95
--- NOTE | 2024-05-28 07:43 | P.HP_ITS ---
History of Present Illness History of Present Illness Date Patient Seen: 05/28/24 Time Patient Seen: 07:43 Chief complaint: Screening Colonoscopy Narrative: 59-year-old woman with Crohn's disease here for screening colonoscopy. Last colonoscopy 2 years ago normal. No family history of colon cancer. Disease is controlled with mesalamine. [facility] Medical History (Updated 05/28/24 @ 07:44 by Misha Mann MD) Crohn's disease Hypothyroid Social History household members: spouse Smoking Status: Never smoker Meds Home Medications and Allergies Home Medications Medication Instructions Recorded Confirmed Type levothyroxine 137 mcg tablet 100 mcg PO DAILY 02/26/20 05/28/24 History (Synthroid) venlafaxine 75 mg capsule,extended 75 mg PO DAILY 02/26/20 05/28/24 History release 24 hr mesalamine 400 mg capsule,delayed 800 mg PO TID 04/18/22 05/28/24 History release Allergies Allergy/AdvReac Type Severity Reaction Status Date / Time No Known Drug Allergies Allergy Verified 05/28/24 07:28 Exam Narrative Exam Narrative: General adult woman alert oriented no acute distress Chest nonlabored respiration Extremities warm well perfused Assessment & Plan Assessment and plan (1) Crohn's disease: Status: Acute Assessment & Plan narrative: The patient requires colorectal screening and colonoscopy is recommended. Technical details were discussed. Risks, benefits, alternatives explained. Risks including but not limited to myocardial infarction, aspiration, bleeding, pain, missed lesion, incomplete examination, need for further radiographic studies, intestinal injury, and need for major abdominal surgery were discussed. All questions were answered to their satisfaction, and they are in agreement with this plan. Time-Based Coding :: [TOTAL MINUTES] spent with patient and on the chart (including review of chart, obtaining history, exam, reviewing outside data, placing orders, documenting exam and treatment plan, and counseling patient) on [DATE].
[2024-05-28] MEDS: ONDANSETRON 4 MG/2 ML INJ IV (07:53)
--- NOTE | 2024-05-28 07:55 | SUR.PREOP ---
Nausea/Diaphoresis: Patient nauseated and diaphoretic upon return from bathroom. bp now 132/87 Hr 72 saO2 94%. Bp was 164/100 on admit. Notified Gabriella Quinones CRNA of findings. Received order for IV zofran. IV zofran given as ordered. Patient now verbalizes relief of nausea. Less diaphoretic.
--- NOTE | 2024-05-28 08:02 | PM.HP.1 ---
History of Present Illness History of Present Illness Chief complaint: Screening Colonoscopy Narrative: 59-year-old woman with Crohn's disease here for screening colonoscopy. Last colonoscopy 2 years ago normal. No family history of colon cancer. Disease is controlled with mesalamine. [facility] Medical History (Updated 05/28/24 @ 07:44 by Misha Mann MD) Crohn's disease Hypothyroid Social History household members: spouse Smoking Status: Never smoker Meds Home Medications and Allergies Home Medications Medication Instructions Recorded Confirmed Type levothyroxine 137 mcg tablet 100 mcg PO DAILY 02/26/20 05/28/24 History (Synthroid) venlafaxine 75 mg capsule,extended 75 mg PO DAILY 02/26/20 05/28/24 History release 24 hr mesalamine 400 mg capsule,delayed 800 mg PO TID 04/18/22 05/28/24 History release Allergies Allergy/AdvReac Type Severity Reaction Status Date / Time No Known Drug Allergies Allergy Verified 05/28/24 07:28 Exam Vital Signs (past 8 hours): - 05/28/24 07:30 Temperature 98.3 F Pulse Rate 81 Respiratory Rate 18 Blood Pressure 164/100 H Pulse Oximetry 95 Oxygen Delivery Method Room Air Oxygen Delivery Method Room Air Narrative Exam Narrative: General adult woman alert oriented no acute distress Chest nonlabored respiration Extremities warm well perfused Assessment & Plan Assessment and plan (1) Crohn's disease: Status: Acute Plan The patient requires colorectal screening and colonoscopy is recommended. Technical details were discussed. Risks, benefits, alternatives explained. Risks including but not limited to myocardial infarction, aspiration, bleeding, pain, missed lesion, incomplete examination, need for further radiographic studies, intestinal injury, and need for major abdominal surgery were discussed. All questions were answered to their satisfaction, and they are in agreement with this plan. Time-Based Coding :: [TOTAL MINUTES] spent with patient and on the chart (including review of chart, obtaining history, exam, reviewing outside data, placing orders, documenting exam and treatment plan, and counseling patient) on [DATE].
--- NOTE | 2024-05-28 08:11 | P.OP.COLON_ITS ---
Operative Date/Time/Diagnoses Date of procedure: 05/28/24 Time of procedure: 08:11 Pre-op diagnosis: History of Crohn's disease Procedure & Clinicians Study performed: Screening colonoscopy Same procedure as scheduled: Yes Indications: Colorectal screening, history of Crohn's disease Surgeon: Misha Mann Procedure Notes Procedure in detail: The history and physical was performed/updated and the patient is ASA class is 2. The procedure was discussed in detail with the patient. Potential risks complications including infection, bleeding, missed diagnosis, perforation, need for surgery, and were explained. Their questions were answered and informed consent was obtained. Patient was brought to the procedure room and placed standard monitoring equipment. The patient's vital signs were monitored continuously throughout the entire procedure. Prior to starting time-out was performed. The patient was placed in the left lateral recumbent position. Procedural sedation was administered by anesthesia. Examination began with a thorough inspection of the perianal area there was no evidence of fissures, fistulae, external hemorrhoids or cutaneous malignancy. The colonoscopy scope was then placed into the anal canal and was advanced to the cecum, which was identified by the ileocecal valve, the appendiceal orifice and the confluence of the taenia. The scope was then slowly withdrawn examining colon thoroughly in all directions, irrigating it of any residual stool. The scope was retroflexed within the rectum The patient tolerated the procedure well. They will be discharged once criteria are met. The prep was of good/excellent quality. The withdrawl time was 6 minutes. FINDINGS * Diverticulosis of distal colon mild * Internal hemorrhoids * Transverse colon 2 mm polyp removed with biopsy forceps Specimen(s): other (Transfer his colon polyp) Impression: Colonic polyp x1 Post-procedure Plan for aftercare: Repeat colonoscopy 2 years Disposition: same day surgery
[2024-05-28 08:30] VITALS: BP 119/64; PULSE 671; RESP 14; TEMP 36.6; O2SAT 93
[2024-05-28 08:35] VITALS: BP 132/69; PULSE 63; RESP 21; O2SAT 95
[2024-05-28 08:40] VITALS: BP 141/72; PULSE 65; RESP 14; O2SAT 97
[2024-05-28 08:45] VITALS: BP 147/80; PULSE 67; RESP 18; TEMP 36.4; O2SAT 99
== END 2024-05-28 09:04 | disposition home or self-care (01) ==
PROVIDERS: PCP Student in an Organized Health Care Education/Training Program; Referring Provider Surgery; Visit Provider Surgery
PROC: 0DJD8ZZ Inspection of Lower Intestinal Tract, Via Natural or Artificial Opening Endoscopic (ICD-10-PCS; CPT 45378; principal; 2024-05-28 08:15)
DX: Z12.11 Encounter for screening for malignant neoplasm of colon (principal); K57.30 Diverticulosis of large intestine without perforation or abscess without bleeding; K64.8 Other hemorrhoids
CPT/HCPCS: 45380; J2405; J2704